=== PATIENT | male | born 1940 | race Caucasian/White ===

== ENCOUNTER → 2016-03-13 | Outpatient (CLI) | payer BC ==
[~2016-03-13] MED LIST: ATEN-173 PO; LOSA50TA6 PO; PANT40TA PO; RIVA1TAB4 PO; SACC250C PO; SIMV10TA2 PO; TAMS0.4C59 PO
[2016-03-13 11:09] LABS: ESTIMATED AVERAGE GLUCOSE 126 mg/dl; HA1C FLAG Normal (Normal)
[2016-03-13 11:15] LABS: BLOOD UREA NITROGEN 22 mg/dl (7-18); BUN/CREATININE RATIO 15.6 (10-20); CALCIUM 9.1 mg/dl (8.5-10.1); CARBON DIOXIDE 29 mmol/L (21-32); CHLORIDE 103 mmol/L (98-107); GLUCOSE 105 mg/dl (70-99); MAGNESIUM 1.9 mg/dl (1.8-2.4); SODIUM 142 mmol/L (136-145)
== END | disposition home or self-care (01) ==
LOC: C.LAB1850 09:44
PROVIDERS: ATTEND Internal Medicine
DX: T88.7XXA Unspecified adverse effect of drug or medicament, initial encounter (principal); X58.XXXA Exposure to other specified factors, initial encounter; R73.9 Hyperglycemia, unspecified; M25.649 Stiffness of unspecified hand, not elsewhere classified

== ENCOUNTER → 2016-10-09 | Outpatient (CLI) | payer BC ==
[2016-10-09 10:04] LABS: ALT/SGPT 21 U/L (12-78); BLOOD UREA NITROGEN 23 mg/dl (7-18); BUN/CREATININE RATIO 16.6 (10-20); CALCIUM 8.7 mg/dl (8.5-10.1); CARBON DIOXIDE 31 mmol/L (21-32); CHLORIDE 105 mmol/L (98-107); CHOLESTEROL 133 mg/dl (0-200); GLUCOSE 111 mg/dl (70-99); SODIUM 140 mmol/L (136-145); TRIGLYCERIDES 144 mg/dl (0-150); VERY LOW DENSITY LIPOPROT CALC 29 mg/dl
[2016-10-09 10:08] LABS: ALKALINE PHOSPHATASE 109 U/L (45-117); AST/SGOT 22 U/L (15-37); CHOLESTEROL/HDL RATIO 3.4; HDL CHOLESTEROL 39 mg/dl; LDL CHOLESTEROL CALCULATED 65 mg/dl
[2016-10-09 10:10] LABS: ESTIMATED AVERAGE GLUCOSE 123 mg/dl; HA1C FLAG Normal (Normal)
== END | disposition home or self-care (01) ==
LOC: C.LAB1850 07:50
PROVIDERS: ATTEND Internal Medicine Cardiovascular Disease
DX: N40.0 Benign prostatic hyperplasia without lower urinary tract symptoms (principal); R73.9 Hyperglycemia, unspecified; I48.2 Chronic atrial fibrillation

== ENCOUNTER → 2017-01-20 | Outpatient (CLI) | payer BC ==
--- NOTE | 2017-01-20 14:59 | DIAGNOSTIC IMAGING REPORT ---
R FINGER(S) MIN 2 VIEWS ROUTINE HISTORY: 76 years-old Male M10.9 GoutM79.646 Thumb [id number] acute pain of the right thumb with history of gouty arthropathy COMPARISON: None available TECHNIQUE: 3 views of the right thumb FINDINGS: Mild degenerative changes are noted within the first carpal phalangeal and interphalangeal joints. Moderate first carpometacarpal osteoarthritis. There is suggestion of mild marginal erosions involving the first interphalangeal joint with moderate associated soft tissue swelling. There is no acute fracture or dislocation. Vascular calcifications noted. IMPRESSION: 1. No acute fracture or dislocation. 2. Suggestion of mild marginal erosions of the first interphalangeal joint with moderate soft tissue swelling may correlate with patient's clinical history of gout arthropathy. 3. Peripheral vascular disease. The above report was generated using voice recognition software. It may contain grammatical, syntax or spelling errors. Electronically signed by: Robert Chawla M.D. 01/20/2017 2:58 PM Dictated Date/Time: 01/20/2017 2:55 PM
== END | disposition home or self-care (01) ==
LOC: C.RAD1850 14:39
PROVIDERS: ATTEND Physician Assistant Medical
DX: M10.9 Gout, unspecified (principal); M79.644 Pain in right finger(s); I73.9 Peripheral vascular disease, unspecified

== ENCOUNTER → 2017-04-29 | Outpatient (CLI) | payer OTHER | END | disposition home or self-care (01) | LOC: C.LAB1850 09:57 | PROVIDERS: ATTEND Physician Assistant | DX: N40.0 Benign prostatic hyperplasia without lower urinary tract symptoms (principal) ==

== ENCOUNTER → 2017-05-05 | Outpatient (CLI) | payer OTHER ==
--- NOTE | 2017-05-05 08:47 | DIAGNOSTIC IMAGING REPORT ---
R UPPER EXT NONJOINT WITHOUT CLINICAL HISTORY: 76 years-old Male presenting with M79.646 Thumb pain. TECHNIQUE: Multisequence, multiplanar MR imaging of the right thumb was performed without the use of intravenous contrast. IV contrast: None. COMPARISON: Plain radiographs from 01/20/2017. FINDINGS: Localizer images: Unremarkable. Bone marrow: Bony edema noted in the proximal phalanx of the first finger predominantly at the level of the head and distal metadiaphysis. Minimal bony edema noted at the base of the distal phalanx of the first finger. Focal T2 hyperintense, T1 hypointense cystic change noted in the distal pole of the scaphoid consistent with degenerative change. Articular cartilage: The first metacarpal phalangeal joint also demonstrates minimal osteophytosis the articular cartilage is preserved. Normal-appearing first interphalangeal joint. Osteophytosis noted at the trapezium-first metacarpal articulation. Articular cartilage thinning centrally at the first carpometacarpal articulation. Dorsal soft tissues: Subcutaneous edema noted along the dorsal aspect of the dorsal plate. Minimal edema also noted deep to the dorsal plate at the level of the head of the proximal phalanx. The ligamentous attachment of the dorsal plate at the base of the distal phalanx remains intact. Ventral soft tissues: Ventral plate intact. No surrounding edema. Collateral ligaments: Ulnar and radial collateral ligaments at the metacarpophalangeal and interphalangeal joints intact. Aponeuroses of the abductor and adductor pollicis brevis tendons intact. Muscle: Normal muscle bulk and muscle signal intensity. IMPRESSION: 1. Edema superficial and deep to the dorsal plate primarily at the level of the interphalangeal joint with prominent bony edema in the proximal phalanx of the first finger. No ligamentous or tendinous tear. These findings suggest sprain and possible bony contusion. 2. Degenerative changes at the scaphoid-trapezium, trapezium-first metacarpal, and first metacarpal-proximal phalanx articulations. Electronically signed by: Kraig Vásquez M.D. 05/05/2017 8:45 AM Dictated Date/Time: 05/05/2017 8:26 AM
== END | disposition home or self-care (01) ==
LOC: C.MRI 07:12
PROVIDERS: ATTEND Internal Medicine Rheumatology
DX: M79.646 Pain in unspecified finger(s) (principal)

== ENCOUNTER → 2017-07-01 | Outpatient (CLI) | payer OTHER ==
[2017-07-01 10:46] LABS: HEMOGLOBIN A1C 6.2 % (4.5-5.6)
[2017-07-01 14:06] LABS: ALT/SGPT 21 U/L (12-78); AST/SGOT 22 U/L (15-37); BLOOD UREA NITROGEN 19 mg/dl (7-18); CALCIUM 8.5 mg/dl (8.5-10.1); CARBON DIOXIDE 29 mmol/L (21-32); CREATININE 1.27 mg/dl (0.60-1.40); GLUCOSE 110 mg/dl (70-99); POTASSIUM 3.5 mmol/L (3.5-5.1); SODIUM 140 mmol/L (136-145)
[2017-07-01 14:09] LABS: CHOLESTEROL 131 mg/dl (0-200); LDL CHOLESTEROL CALCULATED 62 mg/dl
== END | disposition home or self-care (01) ==
LOC: C.LAB1850 07:32
PROVIDERS: ATTEND Physician Assistant Medical
DX: E78.5 Hyperlipidemia, unspecified (principal); I10 Essential (primary) hypertension